=== PATIENT | male | born 1975 | race Caucasian/White ===

== ENCOUNTER 2025-10-13 04:26 | Emergency (ER) | payer MEDICAID ==
[2025-10-13] MEDS ORDERED: Sodium Chloride 0.9% 10 ML Syringe FLUSH PRN (04:42)
[2025-10-13] MEDS: Ketorolac 15 MG/ML SDV IVPUSH ONE (04:47)
[2025-10-13] MEDS: Ketorolac 15 MG/ML SDV ONE (04:48)
[2025-10-13 05:07] LABS: BASOPHILS ABSOLUTE AUTO 0.01 K/uL (0.02-0.10); BASOPHILS PERCENT AUTO 0.1 % (0.0-0.5); EOSINOPHILS ABSOLUTE AUTO 0.10 K/uL (0.04-0.40); EOSINOPHILS PERCENT AUTO 0.8 % (1.0-5.0); LYMPHOCYTES ABSOLUTE AUTO 2.22 K/uL (1.50-4.00); LYMPHOCYTES PERCENT AUTO 16.8 % (20.0-40.0); MEAN PLATELET VOLUME 9.3 fL (6.0-10.0); MONOCYTES ABSOLUTE AUTO 1.11 K/uL (0.20-0.80); MONOCYTES PERCENT AUTO 8.4 % (3.0-10.0); NEUTROPHILS ABSOLUTE AUTO 9.78 K/uL (2.00-7.50); NEUTROPHILS PERCENT AUTO 73.9 % (45.0-70.0); PLATELET COUNT,PLT 271 K/uL (150-400); RED BLOOD CELL COUNT 5.02 M/uL (4.50-6.50); RED CELL DISTRIBUTION WIDTH 13.3 % (11.0-16.0); WHITE BLOOD CELL COUNT,WBC 13.2 K/uL (4.0-11.0)
[2025-10-13 05:20] LABS: A/G RATIO 0.8 (0.8-2.0); ALANINE AMINOTRANSFERASE,ALT 34.0 U/L (12-78); ASPARTATE AMNIOTRANSFERASE,AST 11.0 U/L (15-37); BILIRUBIN TOTAL 0.4 mg/dL (0.0-1.0); BLOOD UREA NITROGEN,BUN 15.0 mg/dL (8-26); CARBON DIOXIDE,CO2 29.4 mmol/L (21.0-32.0); CHLORIDE,CL 104.0 mmol/L (98-107); CREATININE 1.09 mg/dL (0.70-1.30); EST CRCL DRUG DOSING (CG) 81.86 mL/min; ESTIMATED GFR 82.0 mL/min (>60); GLUCOSE RANDOM 114.0 mg/dL (74-100); POTASSIUM,K 4.0 mmol/L (3.5-5.1); PROTEIN TOTAL,TP 7.6 g/dL (6.4-8.2); SODIUM,NA 141.0 mmol/L (136-145)
[2025-10-13 07:02] LABS: APPEARANCE,URINE SLIGHTLY CLOUDY (CLEAR); GLUCOSE,URINE NEGATIVE (NEGATIVE); OCCULT BLOOD,URINE MODERATE (NEGATIVE)
[2025-10-13] MEDS: Ondansetron 4 MG/2 ML SDV IVPUSH ONE (07:22)
[2025-10-13] MEDS: Ciprofloxacin in D5W 400 MG in Premix Bag 1 BAG IV ONE (08:14)
[2025-10-13] MEDS: Acetaminophen/HYDROcodone 325-5 MG Tab PO ONE (10:29)
[2025-10-13] MEDS ORDERED: Ondansetron 4 MG Tab.DIS ONE (10:30)
[2025-10-13] MEDS ORDERED: Acetaminophen/HYDROcodone 325-5 MG Tab ONE (10:30)
== END 2025-10-13 10:39 | disposition home or self-care (01) ==
LOC: LB.ED 04:26
DX: N39.0 Urinary tract infection, site not specified (principal); N20.2 Calculus of kidney with calculus of ureter; Z79.899 Other long term (current) drug therapy
CPT/HCPCS: 36415; 74176; 80053; 81001; 85025; 86140; 96361; 96365; 96375; 96376; 99284; A9270; J0744; J1885; J2270; J7030; Q0162